=== PATIENT | female | born 1950 | race Caucasian/White ===

== ENCOUNTER 2022-10-10 09:58 | Inpatient (IN) | payer BC, MEDICARE ==
[~2022-10-10] VITALS: Ht 157.5 cm; Wt 63.1 kg
[2022-10-10] VITALS (10 sets, daily range): BP systolic 127–181; BP diastolic 58–87
[~2022-10-10 09:58] MED LIST: NICOTINE 14 MG/24 HR TRANSDERMAL TD ONE
[2022-10-10] MEDS ORDERED: NS 250 ML IV ONE (10:10)
[2022-10-10 10:39] LABS: HEMOGLOBIN 12.3 g/dl (12.0-15.5); MEAN CORPUSCULAR HEMOGLOBIN 29.1 pg (27.0-33.0); MEAN CORPUSCULAR HGB CONC 31.5 g/dl (32.0-36.5); MEAN CORPUSCULAR VOLUME 92.4 fl (80.0-96.0); PLATELET COUNT, AUTOMATED 473 10^3/uL (150-450); RED BLOOD COUNT 4.22 10^6/uL (4.00-5.40); WHITE BLOOD COUNT 12.3 10^3/uL (4.0-10.0)
[2022-10-10] MEDS: COMBIVENT RESPIMAT 100-20MCG INHALER 4GM INH SCH ×2 (10:40→11:04)
[2022-10-10 10:51] LABS: INR 1.05; PARTIAL THROMBOPLASTIN TIME 30.4 SECONDS (24.8-34.2); PROTHROMBIN TIME 13.9 SECONDS (12.5-14.5)
[2022-10-10 11:10] LABS: LDH LACTATE DEHYDROGENASE 293 U/L (120-246); MAGNESIUM LEVEL 2.1 MG/DL (1.8-2.4)
[2022-10-10 11:11] LABS: CPK CREATINE PHOSPHOKINASE 97 U/L (34-145)
[2022-10-10 11:12] LABS: ALBUMIN 2.5 G/DL (3.2-5.2); ALKALINE PHOSPHATASE 118 U/L (46-116); ALT/SGPT 126 U/L (7.0-40); AST/SGOT 118 U/L (<34); BILIRUBIN,TOTAL 1.3 MG/DL (0.3-1.2); BLOOD UREA NITROGEN 27 MG/DL (9-23); CALCIUM LEVEL 8.9 MG/DL (8.3-10.6); CARBON DIOXIDE LEVEL 23 MMOL/L (20-31); CHLORIDE LEVEL 97 MMOL/L (98-107); CK-MB VALUE MASS 1.3 NG/ML (<3.6); GLOMERULAR FILTRATION RATE > 60.0 (>39); GLUCOSE, FASTING 175 MG/DL (74-106); MB/CK RELATIVE INDEX 1.34 (< OR =4); POTASSIUM SERUM 3.9 MMOL/L (3.5-5.1); SODIUM LEVEL 134 MMOL/L (136-145); TOTAL PROTEIN 6.6 G/DL (5.7-8.2)
[2022-10-10 11:13] LABS: FERRITIN 1203.1 NG/ML (7.3-270.7)
[2022-10-10] MEDS ORDERED: NS 1,780 ML in IV 1 EA IV ONE (11:15)
[2022-10-10] MEDS ORDERED: LevoFLOXacin IV 750 MG in IV 1 EA IV ONE (11:15)
[2022-10-10 11:17] LABS: LYMPHOCYTES 4 % (16-44); MONOCYTES 9 % (0-5); NEUTROPHILS 71 % (28-66)
[2022-10-10 11:18] LABS: PLATELET ESTIMATE INCREASED (NORMAL)
[2022-10-10] MEDS ORDERED: ISOVUE-370 76% 100ML VIAL As Ordered ONE (11:33)
[2022-10-10 11:59] LABS: CK-MB VALUE MASS 1.4 NG/ML (<3.6)
[2022-10-10 12:06] LABS: MB/CK RELATIVE INDEX 1.52 (< OR =4)
[2022-10-10 13:56] LABS: CK-MB VALUE MASS 3.2 NG/ML (<3.6)
[2022-10-10 14:04] LABS: MB/CK RELATIVE INDEX 2.9 (< OR =4)
[2022-10-10 14:11] LABS: HEPATITIS B SURFACE ANTIGEN NEGATIVE (NEGATIVE)
[2022-10-10 14:32] LABS: HEPATITIS C VIRUS ABY INDEX 0.1 INDEX (<0.8)
[2022-10-10 14:33] LABS: HEPATITIS B CORE ANTIBODY IGM NEGATIVE (NEGATIVE)
[2022-10-10] MEDS ORDERED: NS 1,000 ML IV SCH (15:10)
[2022-10-10] MEDS: IPRATROPIUM 0.5MG/ALBUTEROL 2.5MG INH SOL UD 3ML (DUONEB) NEB SCH ×2 (15:10→19:35)
[2022-10-10] MEDS: cefTRIAXone SOD 1 GM in D5W MINI-BAG PLUS 50 ML IV SCH (15:27)
[2022-10-10] MEDS: AZITHROMYCIN 250MG TABLET PO SCH (15:27)
[2022-10-10] MEDS: methylPREDNISolone 40MG 1ML VIAL IV SCH ×2 (15:27→20:09)
[2022-10-10] MEDS ORDERED: HOME MED LIST COMPLETE! XX SCH (15:30)
[2022-10-10 15:44] LABS: ERYTHROCYTE SEDIMENTATION RATE 124 mm/hr (0-30)
[2022-10-10 16:28] LABS: RHEUMATOID FACTOR QUANT 12.2 IU/ML (<14)
[2022-10-10] MEDS: VORICONAZOLE 200MG TABLET (VFEND) PO SCH (20:09)
[2022-10-10] MEDS: OXAZEPAM 15MG CAP PO SCH (20:10)
[2022-10-10] MEDS: HEPARIN SOD (PORCINE) 5000UNITS/ML 1ML VIAL/SYRINGE SC SCH (21:29)
[2022-10-11] VITALS (19 sets, daily range): BP systolic 110–165; BP diastolic 56–77
[2022-10-11] MEDS: methylPREDNISolone 40MG 1ML VIAL IV SCH ×3 (02:45→17:40)
[2022-10-11 04:51] LABS: BASO % 0.1 % (0.0-1.0); EOS # 0.1 10^3/uL (0.0-0.5); EOS % 0.4 % (0.0-3.0); HEMATOCRIT 32.2 % (36.0-47.0); LYMPH # 0.6 10^3/uL (1.5-5.0); LYMPH % 4.8 % (24.0-44.0); MEAN CORPUSCULAR HEMOGLOBIN 29.9 pg (27.0-33.0); MEAN CORPUSCULAR HGB CONC 31.7 g/dl (32.0-36.5); MEAN CORPUSCULAR VOLUME 94.4 fl (80.0-96.0); MONO # 0.9 10^3/uL (0.0-0.8); MONO % 7.3 % (2.0-8.0); NEUTROPHILS # 10.1 10^3/uL (1.5-8.5); NEUTROPHILS % 85.6 % (36.0-66.0); RED BLOOD COUNT 3.41 10^6/uL (4.00-5.40); WHITE BLOOD COUNT 11.8 10^3/uL (4.0-10.0)
[2022-10-11] MEDS: HEPARIN SOD (PORCINE) 5000UNITS/ML 1ML VIAL/SYRINGE SC SCH ×4 (05:17→21:07)
[2022-10-11 05:20] LABS: HEMOGLOBIN 10.2 g/dl (12.0-15.5)
[2022-10-11 05:49] LABS: MAGNESIUM LEVEL 2.1 MG/DL (1.8-2.4)
[2022-10-11 05:54] LABS: ALBUMIN 1.9 G/DL (3.2-5.2); ALKALINE PHOSPHATASE 90 U/L (46-116); ALT/SGPT 121 U/L (7.0-40); AST/SGOT 110 U/L (<34); BILIRUBIN,TOTAL 0.2 MG/DL (0.3-1.2); BLOOD UREA NITROGEN 27 MG/DL (9-23); CALCIUM LEVEL 8.4 MG/DL (8.3-10.6); CARBON DIOXIDE LEVEL 19 MMOL/L (20-31); CHLORIDE LEVEL 110 MMOL/L (98-107); CREATININE FOR GFR 0.86 MG/DL (0.55-1.30); GLOMERULAR FILTRATION RATE > 60.0 (>39); GLUCOSE, FASTING 150 MG/DL (74-106); POTASSIUM SERUM 4.6 MMOL/L (3.5-5.1); SODIUM LEVEL 142 MMOL/L (136-145); TOTAL PROTEIN 5.1 G/DL (5.7-8.2)
[2022-10-11 06:44] LABS: ABG BASE EXCESS -2.4 (-2.0-2.0); ABG HCO3 21.6 MEQ/L (22.0-26.0); ABG O2 SATURATION 93.2 % (95.0-99.0); ABG PARTIAL PRESSURE CO2 34.6 mmHg (35.0-45.0); ABG PARTIAL PRESSURE O2 69.1 mmHg (75.0-100.0); ABG STANDARD HCO3 22.4 MEQ/L (22.0-26.0); ABG TOTAL CO2 22.7 MEQ/L (23.0-31.0); ABG pH (ARTERIAL) 7.414 UNITS (7.350-7.450)
[2022-10-11] MEDS: ASPIRIN 81MG ENTERIC TABLET PO SCH (08:19)
[2022-10-11] MEDS: FAMOTIDINE 20 MG TAB PO SCH (08:19)
[2022-10-11] MEDS: OXAZEPAM 15MG CAP PO SCH ×2 (08:19→21:03)
[2022-10-11] MEDS: AZITHROMYCIN 250MG TABLET PO SCH (08:19)
[2022-10-11] MEDS: VORICONAZOLE 200MG TABLET (VFEND) PO SCH (08:19)
[2022-10-11] MEDS: IPRATROPIUM 0.5MG/ALBUTEROL 2.5MG INH SOL UD 3ML (DUONEB) NEB SCH ×4 (08:47→20:33)
[2022-10-11] MEDS ORDERED: cefTRIAXone SOD 1 GM in D5W MINI-BAG PLUS 50 ML IV SCH (09:00)
[2022-10-11] MEDS ORDERED: LIDOCAINE 1% MDV 20ML VIAL As Ordered ONE (14:21)
[2022-10-11] MEDS ORDERED: LORazepam 2 MG/ML VIAL IV ONE (15:25)
[2022-10-11] MEDS ORDERED: LORazepam 2 MG/ML VIAL IM STA (15:27)
[2022-10-11] MEDS: cefTRIAXone SOD 1 GM in D5W MINI-BAG PLUS 50 ML IV SCH (16:39)
[2022-10-11] MEDS ORDERED: SODIUM CHLORIDE 0.9% INJ 10 ML SYR IV PRN (17:15)
[2022-10-11] MEDS: SODIUM CHLORIDE 0.9% INJ 10 ML SYR IV SCH (17:40)
[2022-10-12 00:36] VITALS: BP 136/63
[2022-10-12] MEDS: methylPREDNISolone 40MG 1ML VIAL IV SCH ×2 (03:45→16:00)
[2022-10-12 04:04] VITALS: BP 132/60
[2022-10-12 04:36] LABS: BASO # 0.1 10^3/uL (0.0-0.2); BASO % 0.4 % (0.0-1.0); HEMATOCRIT 28.7 % (36.0-47.0); LYMPH # 0.7 10^3/uL (1.5-5.0); LYMPH % 3.9 % (24.0-44.0); MEAN CORPUSCULAR HEMOGLOBIN 29.6 pg (27.0-33.0); MEAN CORPUSCULAR HGB CONC 31.4 g/dl (32.0-36.5); MEAN CORPUSCULAR VOLUME 94.4 fl (80.0-96.0); MONO # 0.7 10^3/uL (0.0-0.8); MONO % 3.9 % (2.0-8.0); NEUTROPHILS # 14.7 10^3/uL (1.5-8.5); NEUTROPHILS % 86.6 % (36.0-66.0); PLATELET COUNT, AUTOMATED 342 10^3/uL (150-450); RED BLOOD COUNT 3.04 10^6/uL (4.00-5.40)
[2022-10-12 05:06] LABS: ALBUMIN 1.9 G/DL (3.2-5.2); ALKALINE PHOSPHATASE 100 U/L (46-116); ALT/SGPT 362 U/L (7.0-40); AST/SGOT 267 U/L (<34); BILIRUBIN,TOTAL 0.2 MG/DL (0.3-1.2); BLOOD UREA NITROGEN 35 MG/DL (9-23); CALCIUM LEVEL 8.6 MG/DL (8.3-10.6); CARBON DIOXIDE LEVEL 23 MMOL/L (20-31); CHLORIDE LEVEL 107 MMOL/L (98-107); CREATININE FOR GFR 0.93 MG/DL (0.55-1.30); GLOMERULAR FILTRATION RATE > 60.0 (>39); GLUCOSE, FASTING 199 MG/DL (74-106); POTASSIUM SERUM 3.7 MMOL/L (3.5-5.1); SODIUM LEVEL 139 MMOL/L (136-145)
[2022-10-12] MEDS: HEPARIN SOD (PORCINE) 5000UNITS/ML 1ML VIAL/SYRINGE SC SCH ×3 (06:00→21:10)
[2022-10-12] MEDS: SODIUM CHLORIDE 0.9% INJ 10 ML SYR IV SCH ×2 (06:01→18:02)
[2022-10-12] MEDS ORDERED: ISOVUE-370 76% 100ML VIAL As Ordered ONE (06:24)
[2022-10-12 08:00] VITALS: BP 153/73
[2022-10-12] MEDS: IPRATROPIUM 0.5MG/ALBUTEROL 2.5MG INH SOL UD 3ML (DUONEB) NEB SCH ×4 (08:04→19:44)
[2022-10-12] MEDS: OXAZEPAM 15MG CAP PO SCH ×2 (08:23→21:10)
[2022-10-12] MEDS: AZITHROMYCIN 250MG TABLET PO SCH (08:23)
[2022-10-12] MEDS: FAMOTIDINE 20 MG TAB PO SCH (08:23)
[2022-10-12] MEDS: ASPIRIN 81MG ENTERIC TABLET PO SCH (08:23)
[2022-10-12] MEDS: cefTRIAXone SOD 1 GM in D5W MINI-BAG PLUS 50 ML IV SCH (15:50)
[2022-10-12 16:00] VITALS: BP 142/64
[2022-10-12 21:11] VITALS: BP 151/70
[2022-10-13] MEDS: methylPREDNISolone 40MG 1ML VIAL IV SCH (04:24)
[2022-10-13 04:39] VITALS: BP 172/80
[2022-10-13 05:08] LABS: BASO % 0.2 % (0.0-1.0); HEMATOCRIT 28.3 % (36.0-47.0); HEMOGLOBIN 8.9 g/dl (12.0-15.5); LYMPH # 0.8 10^3/uL (1.5-5.0); MEAN CORPUSCULAR HEMOGLOBIN 29.6 pg (27.0-33.0); MEAN CORPUSCULAR HGB CONC 31.4 g/dl (32.0-36.5); MONO # 0.7 10^3/uL (0.0-0.8); MONO % 4.1 % (2.0-8.0); NEUTROPHILS # 13.3 10^3/uL (1.5-8.5); NEUTROPHILS % 83.2 % (36.0-66.0); PLATELET COUNT, AUTOMATED 336 10^3/uL (150-450); RED BLOOD COUNT 3.01 10^6/uL (4.00-5.40)
[2022-10-13] MEDS: SODIUM CHLORIDE 0.9% INJ 10 ML SYR IV SCH (05:14)
[2022-10-13] MEDS: HEPARIN SOD (PORCINE) 5000UNITS/ML 1ML VIAL/SYRINGE SC SCH (05:14)
[2022-10-13 05:27] LABS: ALBUMIN 2.1 G/DL (3.2-5.2); BILIRUBIN,TOTAL 0.2 MG/DL (0.3-1.2); CALCIUM LEVEL 8.7 MG/DL (8.3-10.6); CREATININE FOR GFR 0.99 MG/DL (0.55-1.30); GLOMERULAR FILTRATION RATE 58.7 (>39); POTASSIUM SERUM 4.6 MMOL/L (3.5-5.1); TOTAL PROTEIN 4.9 G/DL (5.7-8.2)
[2022-10-13] MEDS ORDERED: PRED10TA2 PO (07:20)
[2022-10-13] MEDS ORDERED: FLUT44IN INH (07:20)
[2022-10-13] MEDS ORDERED: ALBU6.7H6 INH (07:20)
[2022-10-13] MEDS ORDERED: PRIL20TA2 PO (07:20)
[2022-10-13] MEDS ORDERED: LISI10TA22 PO (07:20)
[2022-10-13] MEDS ORDERED: SPIR1CAP INH (07:20)
[2022-10-13] MEDS ORDERED: ASPI81TAEC PO (07:20)
[2022-10-13] MEDS ORDERED: BACI1CAP PO (07:20)
[2022-10-13] MEDS ORDERED: MOXI1TAB PO (07:20)
[2022-10-13] MEDS: IPRATROPIUM 0.5MG/ALBUTEROL 2.5MG INH SOL UD 3ML (DUONEB) NEB SCH (08:02)
[2022-10-13] MEDS: OXAZEPAM 15MG CAP PO SCH (08:24)
[2022-10-13] MEDS: AZITHROMYCIN 250MG TABLET PO SCH (08:24)
[2022-10-13] MEDS: ASPIRIN 81MG ENTERIC TABLET PO SCH (08:25)
[2022-10-13] MEDS: FAMOTIDINE 20 MG TAB PO SCH (08:25)
[2022-10-13 08:26] VITALS: BP 181/80
[2022-10-13] MEDS ORDERED: LEVO1TAB40 PO ×2 (10:21→10:26)
[2022-10-13] MEDS ORDERED: INCR1INH INH (10:23)
[2022-10-13] MEDS ORDERED: ALBU8.5H INH (10:23)
[2022-10-13] MEDS ORDERED: PULM90IN INH (10:24)
[2022-10-13 16:09] LABS: ANA (HEP2) Negative (.); ANCA-ATYPICAL <1:20 titer (Neg:<1:20); CYTOPLASMIC NEUTROP AB ANCA-C <1:20 titer (Neg:<1:20); PERINUCLEAR AB ANCA-P <1:20 titer (Neg:<1:20)
== END 2022-10-13 11:35 | disposition home or self-care (01) | DRG 871 ==
LOC: M ED 09:58 → M ED INP 13:17 → ENRESERV 14:11 → M ICU 15:00
PROVIDERS: ADMIT Internal Medicine; ATTEND General Practice
PROC: B246ZZZ Ultrasonography of Right and Left Heart (ICD-10-PCS; 2022-10-10)
PROC: 3E0333Z Introduction of Anti-inflammatory into Peripheral Vein, Percutaneous Approach (ICD-10-PCS; 2022-10-10)
PROC: 5A09357 Assistance with Respiratory Ventilation, Less than 24 Consecutive Hours, Continuous Positive Airway Pressure (ICD-10-PCS; 2022-10-10)
PROC: 02HV33Z Insertion of Infusion Device into Superior Vena Cava, Percutaneous Approach (ICD-10-PCS; principal; 2022-10-11 15:00)
DX: A41.9 Sepsis, unspecified organism (principal); J96.01 Acute respiratory failure with hypoxia; J18.9 Pneumonia, unspecified organism; U07.1 COVID-19; E87.20 Acidosis, unspecified; J44.1 Chronic obstructive pulmonary disease with (acute) exacerbation; J44.0 Chronic obstructive pulmonary disease with (acute) lower respiratory infection; I24.8 Other forms of acute ischemic heart disease; F17.210 Nicotine dependence, cigarettes, uncomplicated; F10.10 Alcohol abuse, uncomplicated; R74.01 Elevation of levels of liver transaminase levels; Z88.0 Allergy status to penicillin; Z20.822 Contact with and (suspected) exposure to COVID-19; E88.09 Other disorders of plasma-protein metabolism, not elsewhere classified; D35.00 Benign neoplasm of unspecified adrenal gland

== ENCOUNTER → 2022-11-29 | Outpatient (CLI) | payer MEDICARE ==
[~2022-11-29] MED LIST changes: +ALBU6.7H6 INH; +ALBU8.5H INH; +ASPI81TAEC PO; +BACI1CAP PO; +FLUT44IN INH; +INCR1INH INH; +LEVO1TAB40 PO; +LISI10TA22 PO; +MOXI1TAB PO; -NICOTINE 14 MG/24 HR TRANSDERMAL TD ONE; +PRED10TA2 PO; +PRIL20TA2 PO; +PULM90IN INH; +SPIR1CAP INH
[2022-11-29 14:34] LABS: ALBUMIN 3.8 G/DL (3.2-5.2); BILIRUBIN,DIRECT 0.2 MG/DL (<0.4); BILIRUBIN,TOTAL 0.9 MG/DL (0.3-1.2); TOTAL PROTEIN 6.5 G/DL (5.7-8.2)
== END ==
LOC: M LABDRWAD 08:05
PROVIDERS: ATTEND Nurse Practitioner Adult Health
DX: F10.10 Alcohol abuse, uncomplicated (principal)

== ENCOUNTER → 2022-12-13 | Outpatient (REF) | payer MEDICARE ==
[2022-12-13 13:29] LABS: BLOOD UREA NITROGEN 22 MG/DL (9-23); CALCIUM LEVEL 9.7 MG/DL (8.3-10.6); CARBON DIOXIDE LEVEL 27 MMOL/L (20-31); CHLORIDE LEVEL 102 MMOL/L (98-107); CREATININE FOR GFR 0.91 MG/DL (0.55-1.30); GLOMERULAR FILTRATION RATE > 60.0 (>39); GLUCOSE, FASTING 83 MG/DL (74-106); POTASSIUM SERUM 4.4 MMOL/L (3.5-5.1); SODIUM LEVEL 138 MMOL/L (136-145)
== END ==
LOC: M LABDRWAD 12:27
PROVIDERS: ATTEND Nurse Practitioner Adult Health
DX: I10 Essential (primary) hypertension (principal)

== ENCOUNTER → 2023-01-03 | Outpatient (CLI) | payer MEDICARE ==
[~2023-01-03] MED LIST changes: +ISOVUE-370 76% 100ML VIAL As Ordered ONE
== END ==
LOC: M RAD 13:53
PROVIDERS: ATTEND Nurse Practitioner Adult Health
DX: D44.12 Neoplasm of uncertain behavior of left adrenal gland (principal)
CPT/HCPCS: 74178; Q9967

== ENCOUNTER → 2023-01-10 | Outpatient (CLI) | payer MEDICARE ==
[~2023-01-10] MED LIST changes: -ISOVUE-370 76% 100ML VIAL As Ordered ONE
[2023-01-10 14:14] LABS: CALCIUM LEVEL 9.2 MG/DL (8.3-10.6); CREATININE FOR GFR 1.05 MG/DL (0.55-1.30); GLOMERULAR FILTRATION RATE 54.8 (>39)
== END ==
LOC: M LABDRWAD 08:21
PROVIDERS: ATTEND Nurse Practitioner Adult Health
DX: I10 Essential (primary) hypertension (principal)

== ENCOUNTER → 2023-01-31 | Outpatient (CLI) | payer MEDICARE ==
[2023-01-31 13:34] LABS: BASO % 0.6 % (0.0-1.0); EOS % 0.4 % (0.0-3.0); HEMATOCRIT 38.9 % (36.0-47.0); HEMOGLOBIN 12.5 g/dl (12.0-15.5); LYMPH # 0.9 10^3/uL (1.5-5.0); LYMPH % 17.7 % (24.0-44.0); MEAN CORPUSCULAR HEMOGLOBIN 29.1 pg (27.0-33.0); MEAN CORPUSCULAR HGB CONC 32.1 g/dl (32.0-36.5); MEAN CORPUSCULAR VOLUME 90.7 fl (80.0-96.0); MONO # 0.4 10^3/uL (0.0-0.8); MONO % 7.7 % (2.0-8.0); NEUTROPHILS # 3.8 10^3/uL (1.5-8.5); PLATELET COUNT, AUTOMATED 233 10^3/uL (150-450); RED BLOOD COUNT 4.29 10^6/uL (4.00-5.40); WHITE BLOOD COUNT 5.2 10^3/uL (4.0-10.0)
[2023-01-31 14:03] LABS: ALBUMIN 4.4 G/DL (3.2-5.2); BILIRUBIN,TOTAL 0.5 MG/DL (0.3-1.2); CALCIUM LEVEL 9.7 MG/DL (8.3-10.6); CHOLESTEROL RISK RATIO 5.31 (<5); CREATININE FOR GFR 1.05 MG/DL (0.55-1.30); GLOMERULAR FILTRATION RATE 54.7 (>39); HDL CHOLESTEROL 58.1 MG/DL (>40); LDL CHOLESTEROL 214.3 MG/DL (<100); NON-HDL-C 250.9 MG/DL; POTASSIUM SERUM 4.5 MMOL/L (3.5-5.1); TOTAL PROTEIN 7.2 G/DL (5.7-8.2)
[2023-01-31 14:05] LABS: FREE T4 0.95 NG/DL (0.89-1.76); THYROID STIMULATING HORMONE 0.745 uIU/ML (0.55-4.78)
== END ==
LOC: M LABDRWAD 08:17
PROVIDERS: ATTEND Family Medicine
DX: I10 Essential (primary) hypertension (principal); Z13.220 Encounter for screening for lipoid disorders

== ENCOUNTER → 2023-02-07 | Outpatient (CLI) | payer MEDICARE | LOC: M LAB 08:48 | PROVIDERS: ATTEND Internal Medicine Endocrinology, Diabetes & Metabolism | DX: D35.02 Benign neoplasm of left adrenal gland (principal) ==

== ENCOUNTER → 2023-02-28 | Outpatient (REF) | payer MEDICARE | LOC: M LABDRWAD 12:44 | PROVIDERS: ATTEND Nurse Practitioner Family | DX: D35.02 Benign neoplasm of left adrenal gland (principal) | CPT/HCPCS: 36415; 82533; G0480 ==

== ENCOUNTER → 2023-10-24 | Outpatient (REF) | payer MEDICARE ==
[2023-10-24 15:00] LABS: BASO % 0.7 % (0.0-1.0); EOS # 0.1 10^3/uL (0.0-0.5); EOS % 2.7 % (0.0-3.0); HEMOGLOBIN 11.4 g/dl (12.0-15.5); LYMPH # 0.5 10^3/uL (1.5-5.0); LYMPH % 10.1 % (24.0-44.0); MEAN CORPUSCULAR HEMOGLOBIN 30.1 pg (27.0-33.0); MEAN CORPUSCULAR HGB CONC 31.7 g/dl (32.0-36.5); MONO # 0.6 10^3/uL (0.0-0.8); MONO % 13.1 % (2.0-8.0); NEUTROPHILS # 3.2 10^3/uL (1.5-8.5); NEUTROPHILS % 72.9 % (36.0-66.0); PLATELET COUNT, AUTOMATED 209 10^3/uL (150-450); RED BLOOD COUNT 3.79 10^6/uL (4.00-5.40); WHITE BLOOD COUNT 4.4 10^3/uL (4.0-10.0)
[2023-10-24 15:08] LABS: THYROID STIMULATING HORMONE 2.309 uIU/ML (0.55-4.78)
[2023-10-24 15:09] LABS: FREE T4 1.08 NG/DL (0.89-1.76)
[2023-10-24 15:11] LABS: ALBUMIN 3.9 G/DL (3.2-5.2); ALKALINE PHOSPHATASE 45 U/L (46-116); ALT/SGPT 24 U/L (7.0-40); AST/SGOT 19 U/L (<34); BILIRUBIN,TOTAL 0.5 MG/DL (0.3-1.2); BLOOD UREA NITROGEN 32 MG/DL (9-23); CALCIUM LEVEL 9.6 MG/DL (8.3-10.6); CARBON DIOXIDE LEVEL 29 MMOL/L (20-31); CHLORIDE LEVEL 104 MMOL/L (98-107); CHOLESTEROL LEVEL 373 MG/DL (<200); CHOLESTEROL RISK RATIO 7.64 (<5); CREATININE FOR GFR 1.32 MG/DL (0.55-1.30); GLUCOSE, FASTING 104 MG/DL (74-106); HDL CHOLESTEROL 48.8 MG/DL (>40); NON-HDL-C 324.2 MG/DL; POTASSIUM SERUM 4.9 MMOL/L (3.5-5.1); SODIUM LEVEL 136 MMOL/L (136-145); TOTAL PROTEIN 6.6 G/DL (5.7-8.2); TRIGLYCERIDES LEVEL 413 MG/DL (<150)
== END ==
LOC: M LABDRWAD 13:29
PROVIDERS: ATTEND Nurse Practitioner Adult Health
DX: E78.5 Hyperlipidemia, unspecified (principal); I10 Essential (primary) hypertension

== ENCOUNTER → 2023-11-21 | Outpatient (REF) | payer MEDICARE ==
[2023-11-21 14:32] LABS: ALBUMIN 3.9 G/DL (3.2-5.2); BILIRUBIN,DIRECT 0.2 MG/DL (<0.4); BILIRUBIN,TOTAL 0.6 MG/DL (0.3-1.2); CALCIUM LEVEL 8.9 MG/DL (8.3-10.6); CREATININE FOR GFR 1.3 MG/DL (0.55-1.30); GLOMERULAR FILTRATION RATE 42.7 (>39); POTASSIUM SERUM 4.2 MMOL/L (3.5-5.1); TOTAL PROTEIN 6.6 G/DL (5.7-8.2)
== END ==
LOC: M LABDRWAD 12:38
PROVIDERS: ATTEND Nurse Practitioner Adult Health
DX: E78.5 Hyperlipidemia, unspecified (principal); I10 Essential (primary) hypertension

== ENCOUNTER → 2024-03-26 | Outpatient (REF) | payer MEDICARE ==
[2024-03-26 14:00] LABS: BILIRUBIN,DIRECT 0.1 MG/DL (<0.4); BILIRUBIN,TOTAL 0.5 MG/DL (0.3-1.2); TOTAL PROTEIN 6.7 G/DL (5.7-8.2)
== END ==
LOC: M LABDRWAD 12:59
PROVIDERS: ATTEND Nurse Practitioner Adult Health
DX: E78.5 Hyperlipidemia, unspecified (principal)

== ENCOUNTER → 2024-06-27 | Outpatient (REF) | payer MEDICARE ==
[2024-06-27 14:21] LABS: BASO % 1.1 % (0.0-1.0); EOS # 0.1 10^3/uL (0.0-0.5); EOS % 3.3 % (0.0-3.0); FREE T4 1.17 NG/DL (0.89-1.76); HEMATOCRIT 39.7 % (36.0-47.0); HEMOGLOBIN 12.7 g/dl (12.0-15.5); LYMPH # 0.5 10^3/uL (1.5-5.0); LYMPH % 14.5 % (24.0-44.0); MEAN CORPUSCULAR HEMOGLOBIN 30.1 pg (27.0-33.0); MEAN CORPUSCULAR VOLUME 94.1 fl (80.0-96.0); MONO # 0.5 10^3/uL (0.0-0.8); MONO % 14.8 % (2.0-8.0); NEUTROPHILS # 2.4 10^3/uL (1.5-8.5); PLATELET COUNT, AUTOMATED 238 10^3/uL (150-450); RED BLOOD COUNT 4.22 10^6/uL (4.00-5.40); THYROID STIMULATING HORMONE 1.837 uIU/ML (0.55-4.78); WHITE BLOOD COUNT 3.7 10^3/uL (4.0-10.0)
[2024-06-27 14:22] LABS: ALBUMIN 4.1 G/DL (3.2-5.2); ALKALINE PHOSPHATASE 58 U/L (46-116); ALT/SGPT 25 U/L (7.0-40); AST/SGOT 19 U/L (<34); BILIRUBIN,TOTAL 0.6 MG/DL (0.3-1.2); BLOOD UREA NITROGEN 26 MG/DL (9-23); CARBON DIOXIDE LEVEL 27 MMOL/L (20-31); CHLORIDE LEVEL 104 MMOL/L (98-107); CHOLESTEROL LEVEL 388 MG/DL (<200); CHOLESTEROL RISK RATIO 7.21 (<5); CREATININE FOR GFR 1.26 MG/DL (0.55-1.30); GLOMERULAR FILTRATION RATE 44.2 (>39); GLUCOSE, FASTING 111 MG/DL (74-106); HDL CHOLESTEROL 53.8 MG/DL (>40); NON-HDL-C 334.2 MG/DL; POTASSIUM SERUM 4.6 MMOL/L (3.5-5.1); SODIUM LEVEL 138 MMOL/L (136-145); TOTAL PROTEIN 7.4 G/DL (5.7-8.2); TRIGLYCERIDES LEVEL 408 MG/DL (<150)
== END ==
LOC: M LABDRWAD 13:22
PROVIDERS: ATTEND Nurse Practitioner Adult Health
DX: J44.9 Chronic obstructive pulmonary disease, unspecified (principal); R94.5 Abnormal results of liver function studies; E78.5 Hyperlipidemia, unspecified; I10 Essential (primary) hypertension

== ENCOUNTER → 2024-07-30 | Outpatient (REF) | payer MEDICARE ==
[2024-07-30 14:02] LABS: ALBUMIN 4.1 G/DL (3.2-5.2); ALKALINE PHOSPHATASE 36 U/L (35-104); ALT/SGPT 22 U/L (7.0-40); AST/SGOT 17 U/L (<34); BILIRUBIN,DIRECT < 0.1 MG/DL (<0.4); BILIRUBIN,TOTAL 0.4 MG/DL (0.3-1.2); TOTAL PROTEIN 7.2 G/DL (5.7-8.2)
== END ==
LOC: M LABDRWAD 13:30
PROVIDERS: ATTEND Nurse Practitioner Adult Health
DX: E78.5 Hyperlipidemia, unspecified (principal)

== ENCOUNTER → 2024-10-29 | Outpatient (REF) | payer MEDICARE ==
[~2024-10-29] MED LIST changes: +BUDE90AE INH; -PULM90IN INH
[2024-10-29 14:28] LABS: BASO % 0.8 % (0.0-1.0); EOS # 0.2 10^3/uL (0.0-0.5); EOS % 3.4 % (0.0-3.0); LYMPH # 0.4 10^3/uL (1.5-5.0); MEAN CORPUSCULAR HEMOGLOBIN 29.8 pg (27.0-33.0); MEAN CORPUSCULAR HGB CONC 31.6 g/dl (32.0-36.5); MEAN CORPUSCULAR VOLUME 94.3 fl (80.0-96.0); MONO # 0.6 10^3/uL (0.0-0.8); MONO % 12.1 % (2.0-8.0); NEUTROPHILS # 3.8 10^3/uL (1.5-8.5); NEUTROPHILS % 75.5 % (36.0-66.0); PLATELET COUNT, AUTOMATED 272 10^3/uL (150-450); RED BLOOD COUNT 4.03 10^6/uL (4.00-5.40)
[2024-10-29 14:34] LABS: ALBUMIN 4.1 G/DL (3.2-5.2); BILIRUBIN,TOTAL 0.4 MG/DL (0.3-1.2); CALCIUM LEVEL 9.4 MG/DL (8.3-10.6); CREATININE FOR GFR 1.48 MG/DL (0.55-1.30); GLOMERULAR FILTRATION RATE 36.7 (>39); HDL CHOLESTEROL 65.9 MG/DL (>40); LDL CHOLESTEROL 162.1 MG/DL (<100); NON-HDL-C 198.1 MG/DL; POTASSIUM SERUM 4.1 MMOL/L (3.5-5.1); TOTAL PROTEIN 7.1 G/DL (5.7-8.2)
[2024-10-29 14:38] LABS: FREE T4 1.24 NG/DL (0.89-1.76)
[2024-10-29 14:39] LABS: THYROID STIMULATING HORMONE 2.294 uIU/ML (0.55-4.78)
== END ==
LOC: M LABDRWAD 12:59
PROVIDERS: ATTEND Nurse Practitioner Adult Health
DX: E78.5 Hyperlipidemia, unspecified (principal); I10 Essential (primary) hypertension

== ENCOUNTER → 2024-11-26 | Outpatient (REF) | payer MEDICARE ==
[2024-11-26 15:20] LABS: CALCIUM LEVEL 9.7 MG/DL (8.3-10.6); CREATININE FOR GFR 1.44 MG/DL (0.55-1.30); GLOMERULAR FILTRATION RATE 37.9 (>39); POTASSIUM SERUM 4.6 MMOL/L (3.5-5.1)
== END ==
LOC: M LABDRWAD 13:03
PROVIDERS: ATTEND Nurse Practitioner Adult Health
DX: I10 Essential (primary) hypertension (principal)

== ENCOUNTER → 2025-03-27 | Outpatient (CLI) | payer MEDICARE ==
[2025-03-27 14:48] LABS: CALCIUM LEVEL 9.3 MG/DL (8.3-10.6); CARBON DIOXIDE LEVEL 27.0 MMOL/L (20-31); CHLORIDE LEVEL 101.0 MMOL/L (98-107); CREATININE FOR GFR 1.34 MG/DL (0.55-1.30); GLOMERULAR FILTRATION RATE 41.4 (>39); POTASSIUM SERUM 4.7 MMOL/L (3.5-5.1); SODIUM LEVEL 137.0 MMOL/L (136-145)
== END ==
LOC: M PLALAB 10:43
PROVIDERS: ATTEND Nurse Practitioner Adult Health
DX: I13.10 Hypertensive heart and chronic kidney disease without heart failure, with stage 1 through stage 4 chronic kidney disease, or unspecified chronic kidney disease (principal)

== ENCOUNTER → 2025-05-06 | Outpatient (REF) | payer MEDICARE ==
[2025-05-06 13:54] LABS: CALCIUM LEVEL 9.3 MG/DL (8.3-10.6); CARBON DIOXIDE LEVEL 28.0 MMOL/L (20-31); CHLORIDE LEVEL 104.0 MMOL/L (98-107); CREATININE FOR GFR 1.31 MG/DL (0.55-1.30); GLOMERULAR FILTRATION RATE 42.5 (>39); POTASSIUM SERUM 4.6 MMOL/L (3.5-5.1); SODIUM LEVEL 142.0 MMOL/L (136-145)
== END ==
LOC: M LABDRWAD 13:13
PROVIDERS: ATTEND Nurse Practitioner Adult Health
DX: I13.10 Hypertensive heart and chronic kidney disease without heart failure, with stage 1 through stage 4 chronic kidney disease, or unspecified chronic kidney disease (principal)

== ENCOUNTER → 2025-08-14 | Outpatient (REF) | payer MEDICARE ==
[2025-08-14 13:45] LABS: BASO # 0.1 10^3/uL (0.0-0.2); BASO % 0.9 % (0.0-1.0); EOS # 0.1 10^3/uL (0.0-0.5); EOS % 2.2 % (0.0-3.0); LYMPH # 0.7 10^3/uL (1.5-5.0); LYMPH % 12.0 % (24.0-44.0); MONO # 0.8 10^3/uL (0.0-0.8); MONO % 14.8 % (2.0-8.0); NEUTROPHILS # 3.8 10^3/uL (1.5-8.5); NEUTROPHILS % 69.7 % (36.0-66.0); PLATELET COUNT, AUTOMATED 286 10^3/uL (150-450)
[2025-08-14 13:48] LABS: ALT/SGPT 31.0 U/L (7.0-40); AST/SGOT 28.0 U/L (<34); CALCIUM LEVEL 9.3 MG/DL (8.3-10.6); CARBON DIOXIDE LEVEL 26.0 MMOL/L (20-31); CHLORIDE LEVEL 108.0 MMOL/L (98-107); CHOLESTEROL LEVEL 282.0 MG/DL (<200); CHOLESTEROL RISK RATIO 5.5 (<5); CREATININE FOR GFR 1.32 MG/DL (0.55-1.30); GLOMERULAR FILTRATION RATE 42.1 (>39); LDL CHOLESTEROL 182.8 MG/DL (<100); NON-HDL-C 230.8 MG/DL; POTASSIUM SERUM 4.3 MMOL/L (3.5-5.1); SODIUM LEVEL 141.0 MMOL/L (136-145); TRIGLYCERIDES LEVEL 240.0 MG/DL (<150)
[2025-08-14 13:52] LABS: FREE T4 1.16 NG/DL (0.89-1.76)
== END ==
LOC: M LABDRAWC 13:02
PROVIDERS: ATTEND Nurse Practitioner Adult Health
DX: I13.10 Hypertensive heart and chronic kidney disease without heart failure, with stage 1 through stage 4 chronic kidney disease, or unspecified chronic kidney disease (principal); E78.5 Hyperlipidemia, unspecified

== ENCOUNTER → 2025-09-16 | Outpatient (REF) | payer MEDICARE ==
[2025-09-16 13:47] LABS: ALT/SGPT 30.0 U/L (7.0-40); AST/SGOT 24.0 U/L (<34)
== END ==
LOC: M LABDRWAD 13:13 → M LAB REF 13:13
PROVIDERS: ATTEND Nurse Practitioner Adult Health
DX: E78.5 Hyperlipidemia, unspecified (principal)